=== PATIENT | female | born 1995 | race Caucasian/White ===

== ENCOUNTER 2016-11-19 22:06 | Emergency (ER) | payer MEDICARE ==
[2016-11-19 23:37] LABS: HEMOGLOBIN 13.5 gm/dl (12.3-15.3); RED BLOOD COUNT 4.63 M/UL (4.00-5.10); WHITE BLOOD COUNT 8.2 K/UL (4.5-11.0)
[2016-11-20 00:02] LABS: BUN/CREATININE RATIO 27 (0-10)
== END 2016-11-20 03:55 | disposition home or self-care (01) ==
LOC: ER1 22:06
PROVIDERS: Physician Assistant
DX: N76.0 Acute vaginitis (principal); B96.89 Other specified bacterial agents as the cause of diseases classified elsewhere; R11.2 Nausea with vomiting, unspecified; Z88.8 Allergy status to other drugs, medicaments and biological substances; Z79.899 Other long term (current) drug therapy
CPT/HCPCS: 36415; 80053; 81001; 83605; 83690; 84703; 85025; 87086; 87210; 93005; 96361; 96365; 99284; J0696; J2405; J7030; J7050; Q9962